=== PATIENT | male | born 1985 | race Caucasian/White ===

== ENCOUNTER 2017-02-02 10:27 | Emergency (ER) | payer SELFPAY ==
[2017-02-02] MEDS ORDERED: Ondansetron HCl/PF 4 MG/2 ML Vial ONE ×2 (11:03)
[2017-02-02] MEDS ORDERED: Ketorolac Tromethamine 30 MG/ML VIAL ONE (11:03)
[2017-02-02 11:22] LABS: #Lymphocytes 1.3 thou/uL (1.20-3.40); #Monocytes 1.7 thou/uL (0.11-0.59); #Neutrophils 13.7 thou/uL (1.40-6.50); %Basophils 0.1 % (0.0-1.0); %Eosinophils 0.2 % (0.0-10.0); %Lymphocytes 7.6 % (21.0-51.0); %Monocytes 10.2 % (0.0-10.0); Mean Platelet Volume 6.3 fL (7.4-10.4); Red Blood Cell (RBC) Count 4.84 mill/uL (4.70-6.10); White Blood Cell (WBC) Count 16.7 thou/uL (4.8-10.8)
--- NOTE | 2017-02-02 11:22 | RAD ---
TWO VIEW CHEST: History: Cough. Comparison: 08-13-16 portable film. FINDINGS/IMPRESSION: Post op changes in the right chest is again noted with clips overlying the right infrahilar region. The lungs appear clear. No infiltrate identified. Heart size is mildly prominent but stable. No evide nce of acute interval change. POS: [facility]
[2017-02-02 11:27] LABS: ALT (SGPT) 44 U/L (8-55); AST (SGOT) 20 U/L (5-34); Alkaline Phosphatase 91 U/L (40-150); Anion Gap 14 mmol/L (10-20); BUN (Urea Nitrogen) 16 mg/dL (8.9-20.6); Bilirubin, Total 0.7 mg/dL (0.2-1.2); Calc. Creatinine Clearance 0 mL/min (70-130); Calcium 9.5 mg/dL (7.8-10.44); Carbon Dioxide 25 mmol/L (22-29); Chloride 103 mmol/L (98-107); Estimated GFR-MDRD 89; Globulin 3.3 g/dL (2.4-3.5); Protein, Total 7.7 g/dL (6.0-8.3)
[2017-02-02] MEDS ORDERED: Dexamethasone 10 MG/ML VIAL ONE (12:18)
== END 2017-02-02 12:45 | disposition home or self-care (01) ==
LOC: ERS 10:27
DX: J01.90 Acute sinusitis, unspecified (principal); F17.210 Nicotine dependence, cigarettes, uncomplicated
CPT/HCPCS: 71020; 80053; 85025; 87081; 87430; 96361; 96374; 96375; J1100; J1885; J2405

== ENCOUNTER 2017-06-30 15:09 | Outpatient (CLI) | payer OTHER | END 2017-06-30 15:10 | disposition home or self-care (01) | LOC: BICULT 15:09 | PROVIDERS: ATTEND Urology | DX: N50.0 Atrophy of testis (principal); E66.9 Obesity, unspecified; R79.89 Other specified abnormal findings of blood chemistry; R39.83 Unilateral non-palpable testicle; R53.82 Chronic fatigue, unspecified | CPT/HCPCS: 76870; 93976 ==

== ENCOUNTER 2017-10-21 19:12 | Emergency (ER) | payer OTHER ==
[2017-10-21 20:06] LABS: #Basophils 0.1 thou/uL (0.0-0.2); #Eosinphils 0.1 thou/uL (0.0-0.7); #Lymphocytes 2.5 thou/uL (1.20-3.40); #Monocytes 0.8 thou/uL (0.11-0.59); #Neutrophils 3.3 thou/uL (1.40-6.50); %Basophils 1.3 % (0.0-1.0); %Eosinophils 1.4 % (0.0-10.0); %Lymphocytes 36.9 % (21.0-51.0); %Monocytes 11.7 % (0.0-10.0); %Neutrophils 48.7 % (42.0-75.0); Mean Corpuscular HGB CONC 35.9 g/dL (32.0-36.0); Mean Corpuscular Hemoglobin 32.5 pg (27.0-31.0); Mean Corpuscular Volume 90.4 fL (78.0-98.0); Mean Platelet Volume 5.9 fL (7.4-10.4); Platelet Count 246 thou/uL (130-400); RBC Distribution Width 11.3 % (11.5-14.5); Red Blood Cell (RBC) Count 3.99 mill/uL (4.70-6.10); White Blood Cell (WBC) Count 6.7 thou/uL (4.8-10.8)
[2017-10-21 20:26] LABS: ALT (SGPT) 30 U/L (8-55); AST (SGOT) 17 U/L (5-34); Albumin 4.3 g/dL (3.5-5.0); Alkaline Phosphatase 115 U/L (40-150); Anion Gap 14 mmol/L (10-20); BUN (Urea Nitrogen) 19 mg/dL (8.9-20.6); Bilirubin, Total 0.4 mg/dL (0.2-1.2); CK (CPK) 139 U/L (30-200); Calc. Creatinine Clearance 0 mL/min (70-130); Calcium 9.4 mg/dL (7.8-10.44); Carbon Dioxide 25 mmol/L (22-29); Chloride 107 mmol/L (98-107); Estimated GFR-MDRD Greater than 90; Globulin 2.8 g/dL (2.4-3.5); Glucose 109 mg/dL (70-105); Potassium 3.4 mmol/L (3.5-5.1); Protein, Total 7.1 g/dL (6.0-8.3); Sodium 143 mmol/L (136-145)
--- NOTE | 2017-10-21 20:33 | RAD ---
RADIOGRAPH CHEST 2 VIEWS: 10/21/17 at 8:15 p.m. HISTORY: 32-year-old male with dyspnea. FINDINGS: There is mild cardiomegaly. There is no evidence of air space density, pulmonary edema, or pneumothor ax. There is no pleural effusion. There are two small surgical clips at the right side of the cardiac shadow. There is no interval change overall compared to 02/02/17. Again noted are the mild, chronic deformities of the lateral aspects of the bilateral rib cages inferiorly. IMPRESSION: 1) No acute pulmonary findings. 2) Mild cardiomegaly without congestive heart failure. shira [] POS: [facility]
[2017-10-21 21:58] LABS: Bilirubin Negative (Negative); Blood, Urine Negative (Negative); Clarity CLEAR (Clear); Glucose, Urine (Dipstick) Negative (Negative); Leukocyte Negative (Negative); Nitrite Negative (Negative); Protein, Urine (Dipstick) Negative (Neg-Trace); Specific Gravity, Urine 1.025 (1.002-1.036); Urobilinogen 0.2 mg/dL (0.2-1.0)
[2017-10-21] MEDS ORDERED: Ketorolac Tromethamine 30 MG/ML VIAL ONE (22:04)
== END 2017-10-21 22:20 | disposition home or self-care (01) ==
LOC: ERS 19:12
DX: M12.9 Arthropathy, unspecified (principal); F17.210 Nicotine dependence, cigarettes, uncomplicated
CPT/HCPCS: 71046; 80053; 81003; 82550; 83605; 85025; 87804; 96361; 96374; J1885

== ENCOUNTER 2017-11-25 20:18 | Emergency (ER) | payer OTHER ==
--- NOTE | 2017-11-25 21:42 | RAD ---
TWO VIEWS CHEST: 11/25/17 COMPARISON: 10/21/17. HISTORY: Cough and congestion. FINDINGS: Stable contour irregularity involves the lateral aspect of multiple right sided ribs, stable. Postoperative clips overlie the right hilar shadow, stable as well. Old left clavicle fracture noted. No pneumothorax, pleural fluid, focal consolidation, or alveolar edema. IMPRESSION: No acute findings. POS: [facility]
[2017-11-25] MEDS ORDERED: Dexamethasone 4 mg/ml Vial ONE (22:23)
== END 2017-11-25 22:16 | disposition home or self-care (01) ==
LOC: ERS 20:18
DX: J40 Bronchitis, not specified as acute or chronic (principal); F17.210 Nicotine dependence, cigarettes, uncomplicated
CPT/HCPCS: 71046; 96372; J1100

== ENCOUNTER 2019-04-11 20:09 | Emergency (ER) | payer BC, OTHER ==
[2019-04-11 20:33] LABS: #Lymphocytes 0.8 thou/uL (1.20-3.40); #Monocytes 1.1 thou/uL (0.11-0.59); #Neutrophils 9.7 thou/uL (1.40-6.50); %Basophils 0.2 % (0.0-1.0); %Eosinophils 0.1 % (0.0-10.0); %Lymphocytes 6.5 % (21.0-51.0); %Monocytes 9.7 % (0.0-10.0); %Neutrophils 83.5 % (42.0-75.0); Hemoglobin 16.8 g/dL (14.0-18.0); Mean Corpuscular HGB CONC 34.1 g/dL (32.0-36.0); Mean Corpuscular Hemoglobin 32.3 pg (27.0-31.0); Mean Platelet Volume 6.4 fL (7.4-10.4); Platelet Count 205 thou/uL (130-400); RBC Distribution Width 12.2 % (11.5-14.5); Red Blood Cell (RBC) Count 5.19 mill/uL (4.70-6.10); White Blood Cell (WBC) Count 11.7 thou/uL (4.8-10.8)
[2019-04-11 20:50] LABS: Bacteria/HPF None Seen HPF (None Seen); Bilirubin Negative (Negative); Blood, Urine 1+ (Negative); Clarity Clear (Clear); Glucose, Urine (Dipstick) Normal (Negative); Leukocyte Negative Leu/uL (Negative); Mucous/LPF Rare LPF (<2+); Nitrite Negative (Negative); Protein, Urine (Dipstick) 20 mg/dL (Neg-Trace); Renal Epithelial 0-3 HPF (None Seen); Squamous Epithelial 0-3 HPF (0-3); Urobilinogen 3 mg/dL (Less than 2); WBC/HPF 0-3 HPF (0-3)
[2019-04-11 20:56] LABS: ALT (SGPT) 23 U/L (8-55); AST (SGOT) 16 U/L (5-34); Albumin 4.4 g/dL (3.5-5.0); Alkaline Phosphatase 85 U/L (40-110); Anion Gap 13 mmol/L (10-20); BUN (Urea Nitrogen) 16 mg/dL (8.9-20.6); Calc. Creatinine Clearance 0 mL/min (70-130); Calcium 9.1 mg/dL (7.8-10.44); Carbon Dioxide 25 mmol/L (22-29); Chloride 100 mmol/L (98-107); Estimated GFR-MDRD 84; Globulin 2.9 g/dL (2.4-3.5); Glucose 106 mg/dL (70-105); Potassium 3.9 mmol/L (3.5-5.1); Protein, Total 7.3 g/dL (6.0-8.3); Sodium 134 mmol/L (136-145)
== END 2019-04-11 22:02 | disposition home or self-care (01) ==
LOC: ERS 20:09
DX: K57.92 Diverticulitis of intestine, part unspecified, without perforation or abscess without bleeding (principal); F41.9 Anxiety disorder, unspecified; F17.210 Nicotine dependence, cigarettes, uncomplicated
CPT/HCPCS: 36415; 80053; 81003; 81015; 85025; 87804; 99284

== ENCOUNTER 2019-08-24 18:46 | Emergency (ER) | payer BC, OTHER ==
[2019-08-25 12:09] LABS: SARS-CoV-2 MS2 Positive; SARS-CoV-2 N Gene Negative; SARS-CoV-2 S Gene Negative; SARS-CoV-2 orf1ab Negative
== END 2019-08-24 19:35 | disposition home or self-care (01) ==
LOC: ERS 18:46
DX: Z20.828 Contact with and (suspected) exposure to other viral communicable diseases (principal); F41.9 Anxiety disorder, unspecified; F17.210 Nicotine dependence, cigarettes, uncomplicated
CPT/HCPCS: 87635; U0003

== ENCOUNTER 2021-11-16 08:04 | Outpatient (CLI) | payer BC ==
[2021-11-16] MEDS ORDERED: Iopamidol-370 76% 500 ML 1 ML ONE (09:07)
== END 2021-11-16 08:05 | disposition home or self-care (01) ==
LOC: BICCT 08:04
PROVIDERS: ATTEND Internal Medicine
DX: K62.5 Hemorrhage of anus and rectum (principal); R10.9 Unspecified abdominal pain; K57.30 Diverticulosis of large intestine without perforation or abscess without bleeding; Z87.19 Personal history of other diseases of the digestive system
CPT/HCPCS: 74177; Q9967

== ENCOUNTER 2021-11-22 21:59 | Emergency (ER) | payer BC ==
[2021-11-22 22:54] LABS: #Basophils 0.1 thou/uL (0.0-0.2); #Eosinphils 0.1 thou/uL (0.0-0.7); #Lymphocytes 1.9 thou/uL (1.20-3.40); #Monocytes 0.8 thou/uL (0.11-0.59); #Neutrophils 4.8 thou/uL (1.40-6.50); %Eosinophils 1.5 % (0.0-10.0); %Lymphocytes 25.2 % (21.0-51.0); %Monocytes 10.7 % (0.0-10.0); %Neutrophils 61.6 % (42.0-75.0); Hemoglobin 13.7 g/dL (14.0-18.0); Mean Corpuscular HGB CONC 34.6 g/dL (32.0-36.0); Mean Corpuscular Hemoglobin 32.4 pg (27.0-31.0); Mean Corpuscular Volume 93.7 fL (78.0-98.0); Mean Platelet Volume 6.3 fL (7.4-10.4); Platelet Count 280 thou/uL (130-400); RBC Distribution Width 11.2 % (11.5-14.5); Red Blood Cell (RBC) Count 4.22 mill/uL (4.70-6.10); White Blood Cell (WBC) Count 7.7 thou/uL (4.8-10.8)
[2021-11-22] MEDS ORDERED: Acetaminophen 500 MG TAB ONE (23:10)
[2021-11-22 23:18] LABS: ALT (SGPT) 25 U/L (8-55); AST (SGOT) 17 U/L (5-34); Albumin 4.7 g/dL (3.5-5.0); Alkaline Phosphatase 85 U/L (40-110); Anion Gap 14 mmol/L (10-20); BUN (Urea Nitrogen) 23 mg/dL (8.9-20.6); Bilirubin, Total 0.4 mg/dL (0.2-1.2); Calc. Creatinine Clearance 0 mL/min (70-130); Calcium 9.9 mg/dL (7.8-10.44); Carbon Dioxide 27 mmol/L (22-29); Chloride 103 mmol/L (98-107); Estimated GFR 85; Globulin 2.7 g/dL (2.4-3.5); Glucose 127 mg/dL (70-105); Potassium 3.8 mmol/L (3.5-5.1); Protein, Total 7.4 g/dL (6.0-8.3); Sodium 140 mmol/L (136-145)
== END 2021-11-23 00:36 | disposition home or self-care (01) ==
LOC: ERS 21:59
DX: R07.9 Chest pain, unspecified (principal); B34.9 Viral infection, unspecified; F17.210 Nicotine dependence, cigarettes, uncomplicated; Z20.822 Contact with and (suspected) exposure to COVID-19
CPT/HCPCS: 36415; 80053; 84484; 85025; 87804; 93005; 94760; U0003; U0005